=== PATIENT | female | born 1980 | race African-American/Black ===

== ENCOUNTER 2021-03-28 06:50 | Emergency (ER) | payer OTHER ==
[~2021-03-28 06:50] MED LIST: IBUPROFEN800 MG PO; KEFLEX500 MG PO; NORCO 5-325 TA1 EACH PO; PREDNISONE20 MG PO
[2021-03-28 07:25] LABS: BASOPHIL 0.3 % (0-2); EOSINOPHIL 0.6 % (0-5); HGB 12.7 g/dl (12.5-16.0); LYMPHOCYTE 29.9 % (15-48); MCH 28.5 pg (25.0-31.0); MCHC 32.6 g/dL (32.0-36.0); MCV 87.4 fL (78.0-100.0); MONOCYTE 5.7 % (0-12); MPV 10.5 fL (6.0-9.5); NEUTROPHIL 63.3 % (41-80); NRBC 0; PLT 244 K/uL (150-400); RBC 4.46 M/uL (4.20-5.40); RDW 13.6 % (11.5-14.0); WBC 12.3 K/uL (4.0-10.5)
[2021-03-28 07:35] LABS: INR 1.73 (0.9-1.2); PROTHROMBIN TIME 19.5 SECONDS (11.8-13.4); PTT 43.6 SECONDS (24.4-34.7)
[2021-03-28 08:00] LABS: ALBUMIN 3.7 g/dL (3.4-5.0); BILIRUBIN - TOTAL 0.2 mg/dL (0.2-1.0); BUN/CREAT RATIO (CALC) 11.1 RATIO; CREATININE 0.9 mg/dL (0.51-0.95); GLOBULIN (CALCULATION) 4.1 g/dL; POTASSIUM 3.4 mmol/L (3.5-5.1); TOTAL PROTEIN 7.8 g/dL (6.4-8.2)
[2021-03-28] MEDS ORDERED: NORCO 5-325 TA1 EACH PO (11:04)
[2021-03-28] MEDS ORDERED: PERCOCET 7.5/321 TAB PO (11:07)
== END 2021-03-28 11:28 | disposition home or self-care (01) ==
LOC: FER 06:50
PROVIDERS: Emergency Medicine Emergency Medical Services
DX: I82.4Z2 Acute embolism and thrombosis of unspecified deep veins of left distal lower extremity (principal); R07.89 Other chest pain; F17.210 Nicotine dependence, cigarettes, uncomplicated; Z79.01 Long term (current) use of anticoagulants
CPT/HCPCS: 36415; 71275; 80053; 84484; 85025; 85610; 85730; 93005; 93971; J1170; J2405; Q9967